=== PATIENT | female | born 1945 | race African-American/Black ===

== ENCOUNTER → 2016-08-30 | Day surgery (SDC) | payer OTHER ==
[~2016-08-30] MED LIST: AMLODIPINE BESYL5 MG PO; ANUSOL SUPP1 SUPP PR; ECOTRIN81 M1 PO; FISH OIL 1,21 CAP.EC PO; HCTZ PO; LISINOPRIL10 MG PO; MOTION RELIEF25 MG PO; MULTI-DAY1 TAB PO; NORVASC PO; OYSTER CALCIUM500 MG PO; TOPROL XL100 MG PO; VIMPAT50 MG PO; VITAL-D RX TABL1 TAB PO; VITAMIN D31000 UNIT PO
--- NOTE | ~2016-08-30 | OR ---
Unit #: [id number] #: [id number] Patient: BAIRON TAMEZ [id number] [address] [id number] O MR#: [id number] NAME: BAIRON TAMEZ ROOM: Date of Procedure: 08/30/2016 Admission Date: 08/30/2016 Surgeon: Kenneth Calix M.D. : 1945 Attending Physician: Kenneth Calix M.D. Primary Care Physician: Jane Gibson M.D. OPERATIVE REPORT PROCEDURE PERFORMED Colonoscopy to anastomosis. INDICATIONS FOR PROCEDURE A 70-year-old, status post right hemicolectomy for a large adenoma undergoing surveillance colonoscopy. MEDICATIONS Monitored anesthesia. POSTOPERATIVE FINDINGS 1. Colonoscopy completed to anastomosis. Prep was adequate. 2. No polyps, masses, or colitis were seen. PLAN Repeat colonoscopy in 3 years. DESCRIPTION OF PROCEDURE The patient was explained of the procedure, risks, and benefits along with the risks and benefits of anesthesia. She was brought to the endoscopy room. Propofol anesthesia was given. Rectal exam was done, which was normal. Colonoscope was lubricated, passed up the rectum, advanced under direct vision all the way to the cecum. Cecum was identified to anastomosis. Anastomosis was intact. Colonic mucosa was intact. No polyps, masses, or colitis were seen. I retroflexed in the rectum, small hemorrhoids seen. Scope was gently pulled out. She tolerated it well. Dictated by... Nighat Cox/margret TD: 08/31/2016 03:41 JOB #: [id number] CC: Gustavo Nugent M.D. Unit #: [id number] #: [id number] Patient: BAIRON TAEMZ OPERATIVE REPORT Page 1 of 1 X Kenneth Calix MD X PROCEDURE OPERATIVE NOTE
== END | disposition home or self-care (01) ==
LOC: COPS 12:08
DX: Z09 Encounter for follow-up examination after completed treatment for conditions other than malignant neoplasm (principal); K64.9 Unspecified hemorrhoids; I10 Essential (primary) hypertension; M19.90 Unspecified osteoarthritis, unspecified site; Z86.010 Personal history of colon polyps; Z88.5 Allergy status to narcotic agent; Z79.899 Other long term (current) drug therapy; Z90.49 Acquired absence of other specified parts of digestive tract; Z90.710 Acquired absence of both cervix and uterus; Z98.51 Tubal ligation status
CPT/HCPCS: 82947